=== PATIENT | male | born 1965 | race American Indian/Alaskan Native ===

== ENCOUNTER 2017-09-18 05:34 | Inpatient (IN) ==
[2017-09-18] MEDS ORDERED: INSULIN REGULAR 100 UNIT/ML IV STA (06:00)
[2017-09-18] MEDS ORDERED: DEXTROSE 50% 25 GM/50 ML VIAL IV STA (06:00)
[2017-09-18] MEDS ORDERED: SODIUM BICARBONATE 50 MEQ/50 ML VIAL IV STA (06:00)
[2017-09-18 06:13] LABS: INR 1.1; PT Patient Result 11.2 SECS; Partial Thromboplastin Time 26.1 SECS (0-40)
[2017-09-18] MEDS: ALBUTEROL 2.5 MG/3 ML NEB RESP TX SCH (06:14)
[2017-09-18 06:22] LABS: Alanine Aminotransferase 20 U/L (16-61); Albumin 3.6 G/DL (3.4-5.0); Alkaline Phosphatase 162 U/L (45-117); Aspartate Amino Transferase 17 U/L (0-37); Bilirubin,Total < 0.39 MG/DL (0.2-1.0); Blood Urea Nitrogen 59 MG/DL (7-18); Calcium 7.2 MG/DL (8.5-10.1); Glucose 125 MG/DL (74-106); Osmolality,Calculated 292.7 MOS/KG (273-304); Potassium 5.7 MMOL/L (3.5-5.1); Sodium 138 MMOL/L (136-145); Total Protein 7.3 G/DL (6.4-8.3)
[2017-09-18] MEDS ORDERED: SODIUM BICARBONATE 50 MEQ/50 ML SYRINGE IV ONE (06:27)
[2017-09-18] MEDS ORDERED: DEXTROSE 50% 25 GM/50 ML SYRINGE IV ONE (06:27)
[2017-09-18] MEDS ORDERED: INSULIN REGULAR 100 UNIT/ML ONE (06:28)
[2017-09-18 07:58] LABS: Basophils % 0.3 % (0.0-0.8); Eosinophils # 0.1 10*3/uL (0.0-0.87); Hematocrit 35.2 VOL% (42.0-52.0); Hemoglobin 11.9 GM/DL (14.0-18.0); Immature Granulocytes % 0.4 %; Immature Granulocytes Absolute 0.03 #; Lymphocytes # 1.2 10*3/uL (1.4-4.0); Lymphocytes % 16.6 % (21.2-54.2); Mean Corpuscular HGB Conc 33.8 GM/DL (32-36); Mean Corpuscular Hemoglobin 32 PG (27-34); Mean Corpuscular Volume 95.1 FL (87-102); Mean Platelet Volume 9.6 FL (9.6-12.0); Monocytes # 0.8 10*3/uL (0.11-0.8); Monocytes % 11.4 % (1.7-12.7); Neutrophils # 5.2 10*3/uL (1.4-7.4); Neutrophils % 70.3 % (38.7-73.9); Platelet Count 219 T/CUMM (130-400); Red Cell Distribution Width 13.5 % (9.3-17.3); White Blood Count 7.4 T/CUMM (4-12)
[2017-09-18] MEDS ORDERED: DEXTROSE 50% 25 GM/50 ML VIAL IV PRN (08:13)
[2017-09-18] MEDS ORDERED: ONDANSETRON 4 MG/2 ML VIAL IV PRN (08:13)
[2017-09-18] MEDS ORDERED: ACETAMINOPHEN 325 MG TABLET PO PRN (08:13)
[2017-09-18] MEDS ORDERED: GLUCAGON 1 MG VIAL IM PRN (08:13)
[2017-09-18] MEDS: DOCUSATE SODIUM 100 MG CAPSULE PO SCH ×2 (09:36→20:41)
[2017-09-18] MEDS: PANTOPRAZOLE 40 MG TABLET PO SCH (09:36)
[2017-09-18] MEDS: SODIUM CHLORIDE 0.9% 1,000 ML IV SCH (09:58)
[2017-09-19] MEDS ORDERED: LEVETIRACETAM PO SCH (09:00)
[2017-09-19] MEDS: SEVELAMER CARBONATE 800 MG TABLET PO SCH ×4 (09:15→21:30)
[2017-09-19] MEDS: PHENYTOIN ER 100 MG CAPSULE PO SCH ×2 (09:15→21:29)
[2017-09-19] MEDS: PANTOPRAZOLE 40 MG TABLET PO SCH (09:15)
[2017-09-19] MEDS: SODIUM CHLORIDE 0.9% 1,000 ML IV SCH (09:15)
[2017-09-19] MEDS: DOCUSATE SODIUM 100 MG CAPSULE PO SCH ×2 (09:15→21:30)
[2017-09-19 11:42] LABS: Basophils % 0.4 % (0.0-0.8); Eosinophils # 0.1 10*3/uL (0.0-0.87); Eosinophils % 2.1 % (0.00-10.9); Hematocrit 33.6 VOL% (42.0-52.0); Hemoglobin 11.5 GM/DL (14.0-18.0); Immature Granulocytes % 0.2 %; Immature Granulocytes Absolute 0.01 #; Lymphocytes % 19.8 % (21.2-54.2); Mean Corpuscular HGB Conc 34.2 GM/DL (32-36); Mean Corpuscular Hemoglobin 32 PG (27-34); Mean Corpuscular Volume 93.3 FL (87-102); Mean Platelet Volume 9.5 FL (9.6-12.0); Monocytes # 0.6 10*3/uL (0.11-0.8); Monocytes % 12.8 % (1.7-12.7); Neutrophils # 3.1 10*3/uL (1.4-7.4); Neutrophils % 64.7 % (38.7-73.9); Platelet Count 189 T/CUMM (130-400); Red Cell Distribution Width 13.3 % (9.3-17.3); White Blood Count 4.9 T/CUMM (4-12)
[2017-09-19 12:18] LABS: Calcium 7.8 MG/DL (8.5-10.1); Osmolality,Calculated 280.1 MOS/KG (273-304); Potassium 4.4 MMOL/L (3.5-5.1); Uric Acid 4.4 MG/DL (3.5-7.2)
[2017-09-20 06:55] LABS: Calcium 7.7 MG/DL (8.5-10.1); Osmolality,Calculated 284.1 MOS/KG (273-304); Potassium 5.2 MMOL/L (3.5-5.1)
[2017-09-20] MEDS ORDERED: CYANOCOBALAMIN 1000 MCG/1 ML VIAL IM ONE ×2 (07:00→14:30)
[2017-09-20] MEDS ORDERED: ERGOCALCIFEROL 50,000 UNIT CAPSULE PO SCH (07:30)
[2017-09-20] MEDS: DOCUSATE SODIUM 100 MG CAPSULE PO SCH ×2 (08:13→22:06)
[2017-09-20] MEDS: PHENYTOIN ER 100 MG CAPSULE PO SCH ×2 (08:13→22:04)
[2017-09-20] MEDS: SEVELAMER CARBONATE 800 MG TABLET PO SCH ×4 (08:13→22:03)
[2017-09-20] MEDS: CALCIUM (CITRATE) 200 MG TABLET PO SCH (08:13)
[2017-09-20] MEDS: PANTOPRAZOLE 40 MG TABLET PO SCH (08:13)
[2017-09-20] MEDS: SODIUM CHLORIDE 0.9% 1,000 ML IV SCH (08:14)
[2017-09-21 06:52] LABS: Basophils % 0.4 % (0.0-0.8); Eosinophils # 0.1 10*3/uL (0.0-0.87); Eosinophils % 2.7 % (0.00-10.9); Hematocrit 33.7 VOL% (42.0-52.0); Hemoglobin 11.8 GM/DL (14.0-18.0); Immature Granulocytes % 0.4 %; Immature Granulocytes Absolute 0.02 #; Lymphocytes # 1.2 10*3/uL (1.4-4.0); Lymphocytes % 23.9 % (21.2-54.2); Mean Corpuscular Hemoglobin 33 PG (27-34); Mean Corpuscular Volume 93.4 FL (87-102); Mean Platelet Volume 9.7 FL (9.6-12.0); Monocytes # 0.8 10*3/uL (0.11-0.8); Monocytes % 16.6 % (1.7-12.7); Neutrophils # 2.7 10*3/uL (1.4-7.4); Platelet Count 216 T/CUMM (130-400); Red Blood Count 3.61 MC/CUMM (3.8-5.5); Red Cell Distribution Width 13.4 % (9.3-17.3); White Blood Count 4.8 T/CUMM (4-12)
[2017-09-21 07:20] LABS: Osmolality,Calculated 281.7 MOS/KG (273-304); Potassium 4.9 MMOL/L (3.5-5.1)
[2017-09-21 07:21] LABS: Eosinophils 2 % (0-10); Hypochromasia 2+; Lymphocytes 19 % (20-55); Microcytosis 1+; Platelet Estimate Adequate; Segmented Neutrophils 66 % (50-85); Total Cells Counted 100
[2017-09-21] MEDS ORDERED: CYANOCOBALAMIN 500 MCG TABLET PO SCH (09:00)
[2017-09-21] MEDS: PHENYTOIN ER 100 MG CAPSULE PO SCH (09:56)
[2017-09-21] MEDS: CALCIUM (CITRATE) 200 MG TABLET PO SCH (09:56)
[2017-09-21] MEDS: SEVELAMER CARBONATE 800 MG TABLET PO SCH ×2 (09:56→13:53)
[2017-09-21] MEDS: PANTOPRAZOLE 40 MG TABLET PO SCH (09:56)
[2017-09-21] MEDS: DOCUSATE SODIUM 100 MG CAPSULE PO SCH (09:57)
[2017-09-21] MEDS: SODIUM CHLORIDE 0.9% 1,000 ML IV SCH (09:57)
[2017-09-21 12:37] VITALS: BP 145/79
== END 2017-09-21 16:05 | disposition home or self-care (01) | DRG 291 ==
LOC: EDBD → EDUNIT# → N.ED 05:34 → N.EDINP 06:31 → N.5E 06:47
PROVIDERS: ADMIT Internal Medicine; ATTEND Internal Medicine

== ENCOUNTER 2018-05-16 15:42 | Inpatient (IN) ==
[2018-05-16] MEDS ORDERED: DEXTROSE 50% 25 GM/50 ML VIAL IV PRN (16:21)
[2018-05-16] MEDS ORDERED: GLUCAGON 1 MG VIAL IM PRN (16:21)
[2018-05-16] MEDS ORDERED: ACETAMINOPHEN 325 MG TABLET PO PRN (16:21)
[2018-05-16] MEDS ORDERED: ONDANSETRON 4 MG/2 ML VIAL IV PRN (16:21)
[2018-05-16] MEDS ORDERED: INFLUENZA VIRUS VACCINE 0.5 ML SYRINGE IM ONE (18:03)
[2018-05-16] MEDS ORDERED: SEVELAMER CARBONATE 800 MG TABLET PO SCH (20:30)
[2018-05-16 20:54] LABS: Basophils % 0.3 % (0.0-0.8); Eosinophils # 0.2 10*3/uL (0.0-0.87); Eosinophils % 1.5 % (0.00-10.9); Hematocrit 40.7 VOL% (42.0-52.0); Hemoglobin 13.6 GM/DL (14.0-18.0); Immature Granulocytes % 0.5 %; Immature Granulocytes Absolute 0.06 #; Lymphocytes # 0.8 10*3/uL (1.4-4.0); Lymphocytes % 7.3 % (21.2-54.2); Mean Corpuscular HGB Conc 33.4 GM/DL (32-36); Mean Corpuscular Hemoglobin 33 PG (27-34); Mean Corpuscular Volume 98.1 FL (87-102); Mean Platelet Volume 9.3 FL (9.6-12.0); Monocytes # 1.5 10*3/uL (0.11-0.8); Monocytes % 13.2 % (1.7-12.7); Neutrophils # 8.5 10*3/uL (1.4-7.4); Neutrophils % 77.2 % (38.7-73.9); Platelet Count 271 T/CUMM (130-400); Red Blood Count 4.15 MC/CUMM (3.8-5.5); Red Cell Distribution Width 13.2 % (9.3-17.3)
[2018-05-16] MEDS: DOCUSATE SODIUM 100 MG CAPSULE PO SCH (21:07)
[2018-05-16] MEDS: DOXYCYCLINE HYCLATE 100 MG CAPSULE PO SCH (21:08)
[2018-05-16] MEDS: PHENYTOIN ER 100 MG CAPSULE PO SCH (21:08)
[2018-05-16 21:09] LABS: Osmolality,Calculated 280.2 MOS/KG (273-304); Potassium 4.3 MMOL/L (3.5-5.1)
[2018-05-16] MEDS: CLINDAMYCIN INJ 600 MG in PREMIX 1 EACH IV SCH (21:09)
[2018-05-16] MEDS: levETIRAcetam 500 MG TABLET PO SCH (21:17)
[2018-05-17] MEDS: ALBUTEROL/IPRATROPIUM 3 ML NEB RESP TX SCH ×4 (00:17→19:35)
[2018-05-17] MEDS: CLINDAMYCIN INJ 600 MG in PREMIX 1 EACH IV SCH ×3 (04:28→20:27)
[2018-05-17 05:29] LABS: Basophils % 0.3 % (0.0-0.8); Eosinophils # 0.2 10*3/uL (0.0-0.87); Eosinophils % 1.5 % (0.00-10.9); Hematocrit 38.8 VOL% (42.0-52.0); Hemoglobin 12.5 GM/DL (14.0-18.0); Immature Granulocytes % 0.5 %; Immature Granulocytes Absolute 0.06 #; Lymphocytes # 1.2 10*3/uL (1.4-4.0); Lymphocytes % 10.4 % (21.2-54.2); Mean Corpuscular HGB Conc 32.2 GM/DL (32-36); Mean Corpuscular Hemoglobin 32 PG (27-34); Mean Corpuscular Volume 98.7 FL (87-102); Mean Platelet Volume 9.4 FL (9.6-12.0); Monocytes # 1.4 10*3/uL (0.11-0.8); Monocytes % 12.9 % (1.7-12.7); Neutrophils # 8.3 10*3/uL (1.4-7.4); Neutrophils % 74.4 % (38.7-73.9); Platelet Count 263 T/CUMM (130-400); Red Blood Count 3.93 MC/CUMM (3.8-5.5); Red Cell Distribution Width 13.2 % (9.3-17.3); White Blood Count 11.1 T/CUMM (4-12)
[2018-05-17 06:08] LABS: Albumin 2.9 G/DL (3.4-5.0); Bilirubin,Total 0.7 MG/DL (0.2-1.0); Calcium 8.5 MG/DL (8.5-10.1); Osmolality,Calculated 276.4 MOS/KG (273-304); Potassium 4.7 MMOL/L (3.5-5.1); Total Protein 8.1 G/DL (6.4-8.3); Uric Acid 4.3 MG/DL (3.5-7.2)
[2018-05-17] MEDS ORDERED: BUPIVACAINE 0.5% /EPI 10 ML VIAL ONE (08:41)
[2018-05-17] MEDS ORDERED: LIDOCAINE 1%/EPI INJ 20 ML VIAL ONE (08:42)
[2018-05-17] MEDS ORDERED: MEPERIDINE 25 MG/1 ML VIAL ONE (10:03)
[2018-05-17] MEDS ORDERED: ONDANSETRON 4 MG/2 ML VIAL ONE (10:03)
[2018-05-17] MEDS ORDERED: PROPOFOL 200 MG/20 ML VIAL IV ONE (10:04)
[2018-05-17] MEDS ORDERED: fentaNYL 100 MCG/2 ML VIAL ONE (10:05)
[2018-05-17] MEDS ORDERED: SODIUM CHLORIDE 0.9% 100 ML IV ONE (10:05)
[2018-05-17] MEDS: MEPERIDINE 25 MG/1 ML VIAL IV PRN ×2 (10:05→13:25)
[2018-05-17] MEDS ORDERED: MIDAZOLAM 2 MG/2 ML VIAL ONE (10:05)
[2018-05-17] MEDS ORDERED: ONDANSETRON 4 MG/2 ML VIAL IV PRN (10:11)
[2018-05-17] MEDS ORDERED: VANCOMYCIN INJ 750 MG in SODIUM CHLORIDE 0.9% 250 ML IV PRN (10:45)
[2018-05-17] MEDS ORDERED: VANCOMYCIN INJ 1,500 MG in SODIUM CHLORIDE 0.9% 500 ML IV ONE (11:00)
[2018-05-17] MEDS: SEVELAMER CARBONATE 800 MG TABLET PO SCH ×3 (11:20→17:40)
[2018-05-17] MEDS: DOCUSATE SODIUM 100 MG CAPSULE PO SCH ×2 (11:20→20:26)
[2018-05-17] MEDS: PANTOPRAZOLE 40 MG TABLET PO SCH (11:20)
[2018-05-17] MEDS: levETIRAcetam 500 MG TABLET PO SCH ×3 (11:20→20:26)
[2018-05-17] MEDS: PHENYTOIN ER 100 MG CAPSULE PO SCH ×3 (11:20→20:26)
[2018-05-17] MEDS: DOXYCYCLINE HYCLATE 100 MG CAPSULE PO SCH ×2 (11:21→20:26)
[2018-05-17] MEDS ORDERED: DEXTROSE 50% 25 GM/50 ML VIAL IV PRN (12:16)
[2018-05-17] MEDS ORDERED: GLUCAGON 1 MG VIAL IM PRN (12:16)
[2018-05-17] MEDS: traMADol 50 MG TABLET PO PRN (17:40)
[2018-05-18] MEDS: ALBUTEROL/IPRATROPIUM 3 ML NEB RESP TX SCH ×4 (00:14→19:12)
[2018-05-18] MEDS: traMADol 50 MG TABLET PO PRN ×2 (02:00→17:21)
[2018-05-18 05:01] LABS: Basophils % 0.2 % (0.0-0.8); Eosinophils # 0.3 10*3/uL (0.0-0.87); Eosinophils % 3.3 % (0.00-10.9); Hematocrit 32.1 VOL% (42.0-52.0); Hemoglobin 10.7 GM/DL (14.0-18.0); Immature Granulocytes % 1.1 %; Immature Granulocytes Absolute 0.09 #; Lymphocytes % 12.1 % (21.2-54.2); Mean Corpuscular HGB Conc 33.3 GM/DL (32-36); Mean Corpuscular Hemoglobin 33 PG (27-34); Mean Corpuscular Volume 98.8 FL (87-102); Mean Platelet Volume 9.3 FL (9.6-12.0); Monocytes # 1.3 10*3/uL (0.11-0.8); Monocytes % 14.9 % (1.7-12.7); NRBC # 0.03 10*3/uL; Neutrophils # 5.7 10*3/uL (1.4-7.4); Neutrophils % 68.4 % (38.7-73.9); Platelet Count 246 T/CUMM (130-400); Red Blood Count 3.25 MC/CUMM (3.8-5.5); Red Cell Distribution Width 13.1 % (9.3-17.3); White Blood Count 8.4 T/CUMM (4-12)
[2018-05-18 05:31] LABS: Calcium 8.1 MG/DL (8.5-10.1); Osmolality,Calculated 280.7 MOS/KG (273-304); Potassium 4.7 MMOL/L (3.5-5.1)
[2018-05-18] MEDS: CLINDAMYCIN INJ 600 MG in PREMIX 1 EACH IV SCH ×3 (06:07→20:59)
[2018-05-18] MEDS: PHENYTOIN ER 100 MG CAPSULE PO SCH ×3 (09:35→20:59)
[2018-05-18] MEDS: DOXYCYCLINE HYCLATE 100 MG CAPSULE PO SCH ×2 (09:35→20:59)
[2018-05-18] MEDS: levETIRAcetam 500 MG TABLET PO SCH ×3 (09:35→20:59)
[2018-05-18] MEDS: DOCUSATE SODIUM 100 MG CAPSULE PO SCH ×2 (09:35→20:59)
[2018-05-18] MEDS: PANTOPRAZOLE 40 MG TABLET PO SCH (09:35)
[2018-05-18] MEDS: SEVELAMER CARBONATE 800 MG TABLET PO SCH ×3 (09:41→17:19)
[2018-05-18] MEDS ORDERED: VANCOMYCIN INJ 750 MG in SODIUM CHLORIDE 0.9% 250 ML IV ONE (18:00)
[2018-05-19] MEDS: ALBUTEROL/IPRATROPIUM 3 ML NEB RESP TX SCH ×4 (00:33→20:07)
[2018-05-19] MEDS: CLINDAMYCIN INJ 600 MG in PREMIX 1 EACH IV SCH ×3 (06:11→20:23)
[2018-05-19] MEDS: traMADol 50 MG TABLET PO PRN ×2 (08:13→12:59)
[2018-05-19] MEDS: levETIRAcetam 500 MG TABLET PO SCH ×3 (08:14→20:21)
[2018-05-19] MEDS: DOCUSATE SODIUM 100 MG CAPSULE PO SCH ×2 (08:14→20:21)
[2018-05-19] MEDS: DOXYCYCLINE HYCLATE 100 MG CAPSULE PO SCH ×2 (08:14→20:21)
[2018-05-19] MEDS: SEVELAMER CARBONATE 800 MG TABLET PO SCH ×3 (08:14→17:25)
[2018-05-19] MEDS: PANTOPRAZOLE 40 MG TABLET PO SCH (08:14)
[2018-05-19] MEDS: PHENYTOIN ER 100 MG CAPSULE PO SCH ×3 (08:14→20:21)
[2018-05-20] MEDS: ALBUTEROL/IPRATROPIUM 3 ML NEB RESP TX SCH ×4 (01:15→18:50)
[2018-05-20 04:31] LABS: Basophils % 0.6 % (0.0-0.8); Eosinophils # 0.4 10*3/uL (0.0-0.87); Eosinophils % 6.5 % (0.00-10.9); Hematocrit 35.1 VOL% (42.0-52.0); Hemoglobin 11.1 GM/DL (14.0-18.0); Immature Granulocytes % 2.3 %; Immature Granulocytes Absolute 0.15 #; Lymphocytes # 1.2 10*3/uL (1.4-4.0); Lymphocytes % 17.8 % (21.2-54.2); Mean Corpuscular HGB Conc 31.6 GM/DL (32-36); Mean Corpuscular Hemoglobin 32 PG (27-34); Mean Corpuscular Volume 99.7 FL (87-102); Mean Platelet Volume 9.3 FL (9.6-12.0); Monocytes # 0.9 10*3/uL (0.11-0.8); NRBC # 0.02 10*3/uL; Neutrophils # 3.9 10*3/uL (1.4-7.4); Neutrophils % 58.8 % (38.7-73.9); Platelet Count 251 T/CUMM (130-400); Red Blood Count 3.52 MC/CUMM (3.8-5.5); Red Cell Distribution Width 13.2 % (9.3-17.3); White Blood Count 6.6 T/CUMM (4-12)
[2018-05-20 05:00] LABS: Albumin 2.8 G/DL (3.4-5.0); Bilirubin,Total 0.4 MG/DL (0.2-1.0); Calcium 8.3 MG/DL (8.5-10.1); Osmolality,Calculated 283.4 MOS/KG (273-304); Potassium 5.6 MMOL/L (3.5-5.1); Total Protein 7.5 G/DL (6.4-8.3)
[2018-05-20] MEDS: CLINDAMYCIN INJ 600 MG in PREMIX 1 EACH IV SCH (06:05)
[2018-05-20] MEDS: traMADol 50 MG TABLET PO PRN ×3 (06:22→20:27)
[2018-05-20] MEDS: SEVELAMER CARBONATE 800 MG TABLET PO SCH ×3 (09:31→17:01)
[2018-05-20] MEDS: DOCUSATE SODIUM 100 MG CAPSULE PO SCH ×2 (09:31→20:27)
[2018-05-20] MEDS: PHENYTOIN ER 100 MG CAPSULE PO SCH ×3 (09:31→20:26)
[2018-05-20] MEDS: levETIRAcetam 500 MG TABLET PO SCH ×3 (09:31→20:27)
[2018-05-20] MEDS: DOXYCYCLINE HYCLATE 100 MG CAPSULE PO SCH (09:31)
[2018-05-20] MEDS: PANTOPRAZOLE 40 MG TABLET PO SCH (09:31)
[2018-05-21] MEDS: ALBUTEROL/IPRATROPIUM 3 ML NEB RESP TX SCH ×4 (00:54→20:05)
[2018-05-21 04:24] LABS: Basophils % 0.5 % (0.0-0.8); Eosinophils # 0.3 10*3/uL (0.0-0.87); Eosinophils % 3.1 % (0.00-10.9); Hematocrit 35.6 VOL% (42.0-52.0); Hemoglobin 11.4 GM/DL (14.0-18.0); Immature Granulocytes % 1.6 %; Immature Granulocytes Absolute 0.14 #; Lymphocytes # 1.2 10*3/uL (1.4-4.0); Lymphocytes % 13.3 % (21.2-54.2); Mean Corpuscular Hemoglobin 32 PG (27-34); Mean Corpuscular Volume 99.4 FL (87-102); Mean Platelet Volume 9.2 FL (9.6-12.0); Monocytes # 0.9 10*3/uL (0.11-0.8); Monocytes % 10.4 % (1.7-12.7); Neutrophils # 6.2 10*3/uL (1.4-7.4); Neutrophils % 71.1 % (38.7-73.9); Platelet Count 290 T/CUMM (130-400); Red Blood Count 3.58 MC/CUMM (3.8-5.5); Red Cell Distribution Width 13.2 % (9.3-17.3); White Blood Count 8.7 T/CUMM (4-12)
[2018-05-21 04:49] LABS: Calcium 8.2 MG/DL (8.5-10.1); Osmolality,Calculated 291.4 MOS/KG (273-304)
[2018-05-21 04:51] LABS: Potassium 6.7 MMOL/L (3.5-5.1)
[2018-05-21] MEDS ORDERED: DEXTROSE 50% 25 GM/50 ML VIAL IV ONE (05:03)
[2018-05-21] MEDS ORDERED: INSULIN REGULAR 100 UNIT/ML ONE (05:09)
[2018-05-21] MEDS ORDERED: ALBUTEROL 2.5 MG/3 ML NEB RESP TX ONE (05:30)
[2018-05-21] MEDS ORDERED: INSULIN REGULAR 100 UNIT/ML IV ONE (05:30)
[2018-05-21] MEDS: DOCUSATE SODIUM 100 MG CAPSULE PO SCH ×2 (09:00→21:15)
[2018-05-21] MEDS: PHENYTOIN ER 100 MG CAPSULE PO SCH ×3 (09:00→21:15)
[2018-05-21] MEDS: SEVELAMER CARBONATE 800 MG TABLET PO SCH ×3 (09:00→17:20)
[2018-05-21] MEDS: levETIRAcetam 500 MG TABLET PO SCH ×3 (09:00→21:15)
[2018-05-21] MEDS: PANTOPRAZOLE 40 MG TABLET PO SCH (09:00)
[2018-05-21] MEDS ORDERED: LIDOCAINE 1%/EPI INJ 20 ML VIAL ONE (15:41)
[2018-05-21] MEDS ORDERED: BUPIVACAINE MPF 0.25% /EPI 30 ML VIAL ONE (15:41)
[2018-05-21] MEDS ORDERED: HYDROmorphone 2 MG/1 ML VIAL ONE (15:58)
[2018-05-21] MEDS ORDERED: ONDANSETRON 4 MG/2 ML VIAL ONE (15:59)
[2018-05-21] MEDS ORDERED: VANCOMYCIN INJ 750 MG in SODIUM CHLORIDE 0.9% 250 ML IV ONE (16:00)
[2018-05-21] MEDS ORDERED: fentaNYL 100 MCG/2 ML VIAL ONE (16:01)
[2018-05-21] MEDS ORDERED: PROPOFOL 200 MG/20 ML VIAL IV ONE (16:01)
[2018-05-21] MEDS ORDERED: MIDAZOLAM 2 MG/2 ML VIAL ONE (16:02)
[2018-05-21] MEDS ORDERED: HYDROmorphone 2 MG/1 ML VIAL IV PRN (16:10)
[2018-05-21] MEDS ORDERED: ONDANSETRON 4 MG/2 ML VIAL IV PRN (16:10)
[2018-05-21] MEDS: traMADol 50 MG TABLET PO PRN (21:15)
[2018-05-22] MEDS: ALBUTEROL/IPRATROPIUM 3 ML NEB RESP TX SCH ×4 (00:28→19:15)
[2018-05-22 05:26] LABS: Basophils % 0.5 % (0.0-0.8); Eosinophils # 0.2 10*3/uL (0.0-0.87); Eosinophils % 3.6 % (0.00-10.9); Hemoglobin 11.9 GM/DL (14.0-18.0); Immature Granulocytes % 1.8 %; Lymphocytes # 0.9 10*3/uL (1.4-4.0); Lymphocytes % 15.4 % (21.2-54.2); Mean Corpuscular HGB Conc 32.2 GM/DL (32-36); Mean Corpuscular Hemoglobin 32 PG (27-34); Mean Corpuscular Volume 98.4 FL (87-102); Mean Platelet Volume 9.3 FL (9.6-12.0); Monocytes # 0.9 10*3/uL (0.11-0.8); Monocytes % 15.9 % (1.7-12.7); Neutrophils # 3.5 10*3/uL (1.4-7.4); Neutrophils % 62.8 % (38.7-73.9); Platelet Count 263 T/CUMM (130-400); Red Blood Count 3.76 MC/CUMM (3.8-5.5); White Blood Count 5.6 T/CUMM (4-12)
[2018-05-22 05:40] LABS: Calcium 8.1 MG/DL (8.5-10.1); Osmolality,Calculated 276.5 MOS/KG (273-304)
[2018-05-22 05:43] LABS: Potassium 6.5 MMOL/L (3.5-5.1)
[2018-05-22 05:49] LABS: Band Neutrophils 1 % (0-10); Eosinophils 3 % (0-10); Lymphocytes 15 % (20-55); Ovalocytes Slight; Segmented Neutrophils 68 % (50-85); Tear Drop Cells Slight; Total Cells Counted 100
[2018-05-22 05:50] LABS: Macrocytosis Slight; Platelet Estimate Normal
[2018-05-22] MEDS: levETIRAcetam 500 MG TABLET PO SCH ×3 (09:39→20:54)
[2018-05-22] MEDS: PANTOPRAZOLE 40 MG TABLET PO SCH (09:39)
[2018-05-22] MEDS: PHENYTOIN ER 100 MG CAPSULE PO SCH ×3 (09:39→20:54)
[2018-05-22] MEDS: SEVELAMER CARBONATE 800 MG TABLET PO SCH ×3 (09:39→18:22)
[2018-05-22] MEDS: DOCUSATE SODIUM 100 MG CAPSULE PO SCH ×2 (09:40→20:54)
[2018-05-22] MEDS ORDERED: SODIUM POLYSTYRENE SULFATE 15 GM/60 ML BOTTLE PO STA (10:50)
[2018-05-23] MEDS: ALBUTEROL/IPRATROPIUM 3 ML NEB RESP TX SCH ×4 (00:30→19:03)
[2018-05-23 05:03] LABS: Calcium 8.4 MG/DL (8.5-10.1); Osmolality,Calculated 290.2 MOS/KG (273-304); Potassium 5.3 MMOL/L (3.5-5.1)
[2018-05-23] MEDS: PANTOPRAZOLE 40 MG TABLET PO SCH (13:52)
[2018-05-23] MEDS: PHENYTOIN ER 100 MG CAPSULE PO SCH ×3 (13:52→20:45)
[2018-05-23] MEDS: SEVELAMER CARBONATE 800 MG TABLET PO SCH ×2 (13:52→18:43)
[2018-05-23] MEDS: levETIRAcetam 500 MG TABLET PO SCH ×3 (13:52→20:45)
[2018-05-23] MEDS: DOCUSATE SODIUM 100 MG CAPSULE PO SCH ×2 (13:52→20:45)
[2018-05-23] MEDS ORDERED: VANCOMYCIN INJ 750 MG in SODIUM CHLORIDE 0.9% 250 ML IV ONE (16:00)
[2018-05-24] MEDS: ALBUTEROL/IPRATROPIUM 3 ML NEB RESP TX SCH ×3 (00:30→13:31)
[2018-05-24 05:50] LABS: Calcium 7.6 MG/DL (8.5-10.1); Potassium 4.6 MMOL/L (3.5-5.1)
[2018-05-24] MEDS ORDERED: cloNIDine 0.1 MG TABLET PO SCH (09:00)
[2018-05-24] MEDS: PHENYTOIN ER 100 MG CAPSULE PO SCH ×2 (09:42→14:57)
[2018-05-24] MEDS: levETIRAcetam 500 MG TABLET PO SCH ×2 (09:42→14:57)
[2018-05-24] MEDS: PANTOPRAZOLE 40 MG TABLET PO SCH (09:42)
[2018-05-24] MEDS: DOCUSATE SODIUM 100 MG CAPSULE PO SCH (09:43)
[2018-05-24] MEDS: SEVELAMER CARBONATE 800 MG TABLET PO SCH ×2 (09:43→13:25)
[2018-05-24 15:49] VITALS: BP 143/79
== END 2018-05-24 16:38 | disposition home health service (06) | DRG 570 ==
LOC: EDUNIT# → N.EDINP 15:42 → N.ED 15:42 → N.EDINP 17:17 → N.5E 17:53
PROVIDERS: ADMIT Internal Medicine; ATTEND Internal Medicine

== ENCOUNTER 2019-04-15 07:39 | Observation (INO) ==
[2019-04-15] MEDS ORDERED: ONDANSETRON 4 MG/2 ML VIAL IV PRN (11:34)
[2019-04-15] MEDS ORDERED: ACETAMINOPHEN 325 MG TABLET PO PRN (11:34)
[2019-04-15 13:13] LABS: Basophils % 0.3 % (0.0-0.8); Eosinophils % 0.1 % (0.00-10.9); Hemoglobin 10.8 GM/DL (14.0-18.0); Immature Granulocytes % 0.5 %; Immature Granulocytes Absolute 0.04 #; Lymphocytes # 0.8 10*3/uL (1.4-4.0); Lymphocytes % 11.4 % (21.2-54.2); Mean Corpuscular HGB Conc 32.7 GM/DL (32-36); Mean Corpuscular Volume 107.1 FL (87-102); Mean Platelet Volume 11.8 FL (9.6-12.0); Monocytes % 11.8 % (1.7-12.7); Neutrophils % 75.9 % (38.7-73.9); Platelet Count 132 T/CUMM (130-400); Red Blood Count 3.08 MC/CUMM (3.8-5.5); Red Cell Distribution Width 15.5 % (9.3-17.3); White Blood Count 7.4 T/CUMM (4-12)
[2019-04-15 13:37] LABS: Calcium 8.3 MG/DL (8.5-10.1); Osmolality,Calculated 284.1 MOS/KG (273-304)
[2019-04-15] MEDS ORDERED: GLUCAGON 1 MG VIAL IM PRN (14:02)
[2019-04-15] MEDS ORDERED: DEXTROSE 10% 250 ML BAG IV PRN (14:02)
[2019-04-15] MEDS: INSULIN REGULAR 100 UNIT/ML SUBCUT SCH ×2 (17:00→20:57)
[2019-04-15] MEDS: ENOXAPARIN 30 MG/0.3 ML SYRINGE SUBCUT SCH (20:58)
[2019-04-16 05:12] LABS: Calcium 8.2 MG/DL (8.5-10.1); Osmolality,Calculated 277.4 MOS/KG (273-304); Risk Ratio 2.61
[2019-04-16 06:04] LABS: Basophils % 0.3 % (0.0-0.8); Eosinophils # 0.1 10*3/uL (0.0-0.87); Eosinophils % 0.8 % (0.00-10.9); Hematocrit 33.4 VOL% (42.0-52.0); Hemoglobin 10.9 GM/DL (14.0-18.0); Immature Granulocytes % 0.6 %; Immature Granulocytes Absolute 0.04 #; Lymphocytes % 15.9 % (21.2-54.2); Mean Corpuscular HGB Conc 32.6 GM/DL (32-36); Mean Corpuscular Volume 105.4 FL (87-102); Mean Platelet Volume 12.5 FL (9.6-12.0); Monocytes % 14.4 % (1.7-12.7); Platelet Count 122 T/CUMM (130-400); Red Blood Count 3.17 MC/CUMM (3.8-5.5); Red Cell Distribution Width 15.1 % (9.3-17.3); White Blood Count 6.2 T/CUMM (4-12)
[2019-04-16] MEDS: INSULIN REGULAR 100 UNIT/ML SUBCUT SCH ×4 (08:30→20:57)
[2019-04-16] MEDS: ENOXAPARIN 30 MG/0.3 ML SYRINGE SUBCUT SCH (20:57)
[2019-04-17] MEDS: INSULIN REGULAR 100 UNIT/ML SUBCUT SCH ×2 (07:40→17:20)
[2019-04-17 16:17] VITALS: BP 151/75
== END 2019-04-17 18:41 | disposition home or self-care (01) ==
LOC: SUATTDRO 10:16 → INTOOBSV 10:16 → N.TELES 10:16
PROVIDERS: ADMIT Internal Medicine; ATTEND Internal Medicine

== ENCOUNTER 2022-03-25 23:50 | Observation (INO) ==
[2022-03-26] MEDS ORDERED: ACETAMINOPHEN 325 MG TABLET PO PRN (00:24)
[2022-03-26] MEDS ORDERED: ONDANSETRON 4 MG/2 ML VIAL IV PRN (00:24)
[2022-03-26 00:38] LABS: Basophils % 0.4 % (0.0-0.8); Eosinophils # 0.1 10*3/uL (0.0-0.87); Eosinophils % 1.6 % (0.00-10.9); Hematocrit 32.6 VOL% (42.0-52.0); Hemoglobin 10.9 GM/DL (14.0-18.0); Immature Granulocytes % 0.6 %; Immature Granulocytes Absolute 0.03 #; Lymphocytes % 19.5 % (21.2-54.2); Mean Corpuscular HGB Conc 33.4 GM/DL (32-36); Mean Corpuscular Volume 103.2 FL (87-102); Mean Platelet Volume 9.3 FL (9.6-12.0); Monocytes # 0.5 10*3/uL (0.11-0.8); Monocytes % 11.1 % (1.7-12.7); Neutrophils % 66.8 % (38.7-73.9); Platelet Count 157 T/CUMM (130-400); Red Blood Count 3.16 MC/CUMM (3.8-5.5); Red Cell Distribution Width 13.4 % (9.3-17.3); White Blood Count 4.9 T/CUMM (4-12)
[2022-03-26 00:42] LABS: Albumin 3.3 G/DL (3.4-5.0); Bilirubin,Total 0.4 MG/DL (0.20-1.00); Calcium 9.5 MG/DL (8.5-10.1); Osmolality,Calculated 286.4 MOS/KG (273-304); Potassium 4.2 MMOL/L (3.5-5.1); Total Protein 6.6 G/DL (6.4-8.2)
[2022-03-26] MEDS: PANTOPRAZOLE 40 MG TABLET PO SCH (09:41)
[2022-03-26] MEDS: levETIRAcetam 500 MG TABLET PO SCH ×3 (11:17→20:55)
[2022-03-26] MEDS: SEVELAMER CARBONATE 800 MG TABLET PO SCH ×3 (11:17→16:27)
[2022-03-26] MEDS: amLODIPine 2.5 MG TABLET PO SCH ×2 (11:17→20:55)
[2022-03-27] MEDS: amLODIPine 2.5 MG TABLET PO SCH ×3 (01:09→21:48)
[2022-03-27] MEDS: levETIRAcetam 500 MG TABLET PO SCH ×3 (09:16→21:45)
[2022-03-27] MEDS: SEVELAMER CARBONATE 800 MG TABLET PO SCH ×3 (09:16→16:24)
[2022-03-27] MEDS: PANTOPRAZOLE 40 MG TABLET PO SCH (09:16)
[2022-03-28 05:37] LABS: Basophils % 0.2 % (0.0-0.8); Eosinophils # 0.1 10*3/uL (0.0-0.87); Eosinophils % 1.9 % (0.00-10.9); Hemoglobin 11.5 GM/DL (14.0-18.0); Immature Granulocytes % 0.4 %; Immature Granulocytes Absolute 0.02 #; Mean Corpuscular HGB Conc 33.8 GM/DL (32-36); Mean Corpuscular Volume 102.1 FL (87-102); Mean Platelet Volume 9.3 FL (9.6-12.0); Monocytes # 0.6 10*3/uL (0.11-0.8); Monocytes % 12.1 % (1.7-12.7); Neutrophils % 65.4 % (38.7-73.9); Platelet Count 156 T/CUMM (130-400); Red Blood Count 3.33 MC/CUMM (3.8-5.5); Red Cell Distribution Width 13.4 % (9.3-17.3); White Blood Count 4.8 T/CUMM (4-12)
[2022-03-28 05:56] LABS: Calcium 9.1 MG/DL (8.5-10.1); Potassium 4.1 MMOL/L (3.5-5.1)
[2022-03-28] MEDS: SEVELAMER CARBONATE 800 MG TABLET PO SCH ×2 (08:56→12:15)
[2022-03-28] MEDS: PANTOPRAZOLE 40 MG TABLET PO SCH (08:57)
[2022-03-28] MEDS: amLODIPine 2.5 MG TABLET PO SCH (08:57)
[2022-03-28] MEDS: levETIRAcetam 500 MG TABLET PO SCH ×2 (08:57→16:02)
[2022-03-28 12:36] VITALS: BP 139/52
== END 2022-03-28 16:55 | disposition home or self-care (01) ==
LOC: EDUNIT# → EDBD → N.5E 23:50 → N.ED 23:50 → N.5E 03-26 00:51
PROVIDERS: ADMIT Internal Medicine; ATTEND Internal Medicine